=== PATIENT | male | born 1970 | race Caucasian/White ===

== ENCOUNTER 2023-08-30 17:23 | Emergency (ER) | payer OTHER, SELFPAY ==
[2023-08-30 17:25] VITALS: BP 165/118; PULSE 76; RESP 16; TEMP 36.8; O2SAT 99; BMI 29.1
--- NOTE | 2023-08-30 18:01 | EX.ED.UPPERE ---
HPI History of Present Illness Chief Complaint: Upper Extremity Injury Detail of Chief Complaint: Left shoulder injury Informant: patient Narrative Narrative: Patient presents to the ER with complaint of left shoulder injury. Patient states that he was at work using a pry bar to open up a box and it lifted his weight off the ground when the board and box broke apparently felt a twinge in his left shoulder. Patient having pain with certain movements. He is left-hand dominant. PFSH PFSH Allergy/AdvReac Type Severity Reaction Status Date / Time No Known Allergies Allergy Verified 08/30/23 17:27 Social History Smoking Status: Never smoker ROS ROS ED Review of Systems ROS Unobtainable: other Constitutional Constitutional ED: Reports lethargy; Denies chills, fever(s), sweats or weight loss Eyes Eyes: Denies blurry vision, change in vision or diplopia ENT ENT ED: Denies rhinorrhea or sore throat Cardiovascular Cardiovascular: Denies chest pain, orthopnea or racing heartbeat Respiratory/Chest Respiratory/Chest: Denies cough, dyspnea, dyspnea on exertion, orthopnea or sputum Gastrointestinal Gastrointestinal: Denies abdominal pain, diarrhea, nausea or vomiting Genitourinary Genitourinary ED: Denies dysuria, hematuria or urinary frequency Musculoskeletal Musculoskeletal: Reports other Details: Injury/pain left shoulder ; Denies arthralgias, back pain, myalgias or neck pain Integumentary Denies abscess, Abrasions or rash Neurologic Neurologic: Denies headache(s) or weakness Psychiatric Psychiatric: Denies anxiety, depression or suicidal thoughts Endocrine Endocrinology: Denies polydipsia, polyphagia or polyuria Hematologic/Lymphatic Hematologic/Lymphatic: Denies easy bleeding, easy bruising or lymphadenopathy Allergic/Immunologic Allergic/Immunologic ED: Denies mouth swelling, tongue swelling or urticaria EXAM Physical Exam Const Vital Signs: 08/30/23 17:25 Temperature 98.2 F Temperature Source Temporal Pulse Rate 76 Respiratory Rate 16 Blood Pressure 165/118 H Blood Pressure Mean 133 Pulse Ox 99 Oxygen Delivery Method Room Air Positive well nourished and well developed General Appearance ED: well developed and NAD HEENT Reports TM's clear and moist mucous membranes normocephalic and atraumatic; Negative for trauma or tenderness Tympanic Membrane ED: Yes TM's clear Eyes PERRL and EOMs intact bilaterally General Eye ED: Negative for pale conjunctiva or scleral icterus Neck no lymphadenopathy, supple and no JVD General: Negative for tenderness Chest Wall inspection of chest normal and palpation of chest normal Chest: Negative for tenderness Resp normal respiratory effort and clear to auscultation bilaterally Effort and Inspection: Negative for respiratory distress or pain with movement Auscultation: Negative for rhonchi, wheezes or diminished lung sounds Cardio regular rate, regular rhythm, S1 normal heart sound, S2 normal heart sound and no murmurs Peripheral Pulses: pulses 2+ throughout GI normal to inspection, nondistended, normoactive bowel sounds, soft to palpation, non-tender, non-distended and no masses Back/Spine no CVA tenderness and no thoracic nor lumbar tenderness Extremity Extremity Narrative: Left shoulder-patient has tenderness palpation over the left trapezius that seems to reproduce some of his pain. He has mild diffuse tenderness over the glenohumeral joint. He has good range of motion at the glenohumeral joint. He is able to abduct past 90 degrees and resist abduction. He is neurovascular intact distally. General Extremety ED: Negative for edema General Extremity: Negative for edema Neuro oriented x3, CN's II-XII intact bilaterally, no sensory deficits noted and gait normal Sensorium / Orientation: awake, alert, oriented to person, oriented to place and oriented to time Motor Exam: strength 5/5 throughout and strength abnormal Psych mental status grossly normal Skin no rashes or lesions noted and no wounds MDM MDM MDM Narrative Medical decision making narrative: Patient presents with injury to the left shoulder. X-rays obtained showed no evidence of fracture or dislocation. Patient will be given a sling. He will be given work restrictions. He is advised to use ibuprofen or Tylenol for discomfort. Lab Data Attestation: I reviewed the patient's lab results. Discharge Plan Triage Chief Complaint: Upper Extremity Injury ED Provider: Preet Child Dx/Rx/DC Orders Clinical Impression: Sprain of left shoulder Instructions: ED Shoulder Sprain Primary Care Provider: Care Physician,No Primary Referrals: Corporate,Care [Group of Physicians] - 3-5 Days Care Physician,No Primary [Primary Care Provider] - Print Language: [place]an Disposition Disposition: Home, Self Care
--- NOTE | 2023-08-30 18:10 | RAD_ITS ---
INDICATION: Trauma, injury EXAMINATION/TECHNIQUE: X-RAY - LEFT XR Shoulder Min 2 Views 2 VIEWS COMPARISON: None. FINDINGS: SOFT TISSUES: No soft tissue swelling or gas. No radiopaque foreign body. BONES/JOINTS: No acute fracture. Joint spaces anatomically aligned. No sclerotic or destructive changes observed. RAD/Shoulder min 2 Views IMPRESSION: No acute bony injury. Electronically Signed: Sam Lopez MD at 19:09 EDT ,
--- NOTE | 2023-08-30 18:16 | ED.RN ---
This RN asked patient if he had recieved a response from letitia Serrano about drug and alcohol testing for workmans comp. Pt. stated his boss told him not to file workman's comp claim and that is boss would reimburse him for ER cost. This RN explained to patient that if patient did filed workmans comp, and then ended up needing a drug test they would be able to deny claim. Pt. verbalized understanding. This RN also offered to call employer and speak to them and pt. stated he did not want to aggravate his employer.
== END 2023-08-30 19:13 | disposition home or self-care (01) ==
PROVIDERS: Emergency Provider Emergency Medicine; Visit Provider Emergency Medicine
DX: S43.402A Unspecified sprain of left shoulder joint, initial encounter (principal); Y99.0 Civilian activity done for income or pay; X50.9XXA Other and unspecified overexertion or strenuous movements or postures, initial encounter
CPT/HCPCS: 73030; 99282

== ENCOUNTER 2023-10-25 18:00 | Outpatient (RCR) | payer OTHER, SELFPAY ==
--- NOTE | 2023-09-12 07:30 | HP.PTDCSUM_ITS ---
Discharge Summary D/C summary: It has been my pleasure to treat CARMELO FRANCOIS referred by SHAVON Avila, with the diagnosis of Left Shoulder Pain for a total of 1 visit(s). Discharge Date: 09/12/23 Please see the following information for a summary of their discharge status. Goals Goal 1:: Patient will be I with HEP and progression Plan Plan: Patient to continue to rest, follow lifting precautions, postural co rrections and follow up with MD D/C Information Discharge Comments: Continue to follow up with MD d/c sentence: If there are questions or concerns regarding this patient's physical therapy, please feel free to call me at [phone]. Thank you for the referral of this patient. Sincerely, Ambar Reynolds, AMBERT Balance/Gait/Functional tests Balance/Special Test Scores Quick DASH Score: 36.3627
--- NOTE | 2023-09-12 07:30 | HP.PTEVAL ---
Patient's Visit Information Visit Information Visit Information: CARMELO FRANCOIS is a 53 year old M referred to Physical Therapy by SHAVON Avila with a diagnosis of Left Shoulder Pain. Date of Evaluation: 09/12/23 Physical Therapist: Ambar Reynolds DPT Visit Plan Frequency: 1x/Week Duration: 1 Week Plan: Patient to continue to rest, follow lifting precautions, postural corrections and follow up with MD Subjective Subjective: Breaking boards at work and felt his left shoulder give way on August 29- kept going- sore and painful and continued to lose range of motion and finally had to go get it looked at. He went to the ER and then did x-rays and then [facility] put him on Predisone which helped. The pain is in the left shoulder in the anterior shoulder and in the anterior deltoid. He has a previous injury in the biceps but the old pain has been exacerbated again. Left hand dominate. Worst: 8/10 Agg: using it Eases: rest. He is okay as long as he keeps his shoulder close to his body he has less pain. He has a lot of pain reaching behind his back- putting on his belt and washing his back. Work Restriction: #10- they don't really have it- inventory receive- and pulls orders- he is trying to work and do the best he can- he is not able to really keep his precautions. Sleep: uncomfortable- wakes him up- likes to be propped up on a pillow. No N/T since the day of the injury. No neck pain or headaches. No MRI or injection. PMHx/Meds: see list from [facility]. Objective Objective: Posture: fair throughout treatment session-can correct with verbal cues Palpation: tender in bicipital groove ROM: Cervical: WNL in all planes, Shoulder: WNL in all planes with pain at and range IR behind the back, Elbow/Wrist: WNL Strength: Shoulder: 5/5 throughout all motions, Elbow: 5/5, Resident Care Spec: equal side to side Special Tests R Shoulder Lift Off Test - Subscapular Tear: Negative R Shoulder Empty Can - SS: Negative R Shoulder Belly Press - SupScap: Negative R Shoulder Neer - Impingement: Positive R Shoulder Sharpe Dionicio - Impingement: Positive Balance/Special Test Scores Quick DASH Score: 36.3625 Goals Goal 1:: Patient will be I with HEP and progression Goal Time Frame: Goal MET Rehabilitation Potential Physical Therapy Diagnosis: Patient has pain due to impingement Rehabilitation Potential: Good Anticipated Interventions Patient/Client Instruction: Educate patient on: Benefits of Fitness Program Therapeutic Exercise to Include: Strength training, Endurance training, Coordination, Agility training, Postural training, Flexibilty training, Neuromotor development, Passive ROM, Active ROM, Dynamic Lumbar Stabilization and Scapular Strength/Stabilization For the Purpose of:: To improve muscle performance and motor function TENS: Yes Cryotherapy (ice pack, ice massage): Yes Thermo therapy (hot pack): Yes Ultrasound (thermal/non thermal): Yes Text: Thank you for the opportunity to evaluate your patient. For Medicare and Medicare HMO plans, please review the plan of care and approve it. It will need to be FAXED BACK to us at [phone] for Medicare purposes. For Medicare only, by signing this I certify the plan of care. Please let me know if there are questions or concerns regarding this plan of care. Physician Signature: Date:
--- NOTE | 2023-10-25 18:52 | HP.PTDCSUM ---
Discharge Summary D/C summary: It has been my pleasure to treat CARMELO FRANCOIS referred by SHAVON Avila, with the diagnosis of Left Shoulder Pain for a total of 12 visit(s). Discharge Date: 10/25/23 Please see the following information for a summary of their discharge status. Subjective Subjective: Pt. reports being 85% better overall. Pt. pleased with all of progress. Pt. reports being back to work without issues. Pt. reports he was DCed from physican as well. Pt. pleased with progress. Overall Improvement % Improvement: 85 Objective Objective/Function: Pt. has great ROM of his L shoulder. flexion 176deg, abd 175deg, functional ER C5 NE, functional IR L1 mild anterior shoulder tightness. Pt. had no pain with over pressures. MMT: symmetrical strength throughout B deltoid and RTC musculature. Pt. is back to all work activities. Overall doing well. Pt. to be DC from PT at this point in time. Goals Goal 1:: Patient will be I with HEP and progression Plan Plan: Pt. has met all goals and will be DC from PT this date. D/C Information Discharge Comments: Continue to follow up with MD d/c sentence: If there are questions or concerns regarding this patient's physical therapy, please feel free to call me at [phone]. Thank you for the referral of this patient. Sincerely, Sean Hoover, DPT Balance/Gait/Functional tests Balance/Special Test Scores Quick DASH Score: 12.5000 Improvement % Improvement: 85
== END 2023-10-25 19:00 | disposition home or self-care (01) ==
LOC: PT 18:00
PROVIDERS: Referring Provider Physician Assistant; Visit Provider Physician Assistant
DX: S43.402D Unspecified sprain of left shoulder joint, subsequent encounter (principal)
CPT/HCPCS: 97110; 97162; 97530